=== PATIENT | female | born 1945 | race Caucasian/White ===

== ENCOUNTER → 2018-05-07 | Outpatient (CLI) | payer MEDICARE, BC ==
--- NOTE | 2018-05-07 19:20 | PE ---
EXAMINATION TYPE: PET CT fusion skull to thigh DATE OF EXAM: 05/07/2018 COMPARISON: NONE HISTORY: Solitary pulmonary nodule. TECHNIQUE: Following the intravenous administration of 12.8 mCi of F-18 FDG, whole body images are p erformed from the skull base to the midthigh. Images are reviewed on the computer in the coronal, ax ial, and sagittal planes. Reconstructed rotating images are created on independent workstation and r eviewed on the computer. A noncontrast CT is performed in conjunction with the PET scan. SCAN: Initial Scan FINDINGS: SKULL BASE AND NECK: No areas of suspicious hypermetabolic uptake are present. CHEST, MEDIASTINUM, AND HILAR REGION: There is mild to moderate underlying emphysematous change. Ther e are suspected surgical sutures or calcification in the long fissure in the upper lungs bilaterally. There are some scattered areas of linear scarring and/or atelectasis seen bilaterally involving pred ominantly mid to lower lungs. No suspicious hypermetabolic nodule or mass is identified. ABDOMEN AND PELVIS: No suspicious hypermetabolic uptake is present. OSSEOUS STRUCTURES: No suspicious hypermetabolic uptake is seen. OTHER CT: There is moderate to severe calcified plaque at bilateral carotid bulb level. Consider alcala tid ultrasound to further evaluate and characterize. 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 Small hiatal hernia is noted. Liver is diffusely low dense consistent with fatty infiltration. There is large dependent calcified 2 .3 cm gallstone in gallbladder. There are staghorn type calculi in the collecting system of both kidneys. There is asymmetric left-si ded atrophy and cortical thinning. There is partially exophytic 3.0 cm cyst laterally upper pole leve l right kidney axial image 151. There are diverticula throughout the visualized colon. There is left mid abdominal colostomy. There i s parastomal hernia containing portion of bowel loop without suspicious dilatation. Sutures at rectal stump axial image 212 are noted left pelvis. There is moderate to severe calcified plaque of the abdominal aorta extending into pelvic branch vess els. IMPRESSION: No suspicious hypermetabolic uptake is seen to suggest lung or metastatic malignancy. Com parison chest x-ray and/or CT not available at time of dictation as presumed performed outside this i nstitution.
== END | disposition home or self-care (01) ==
LOC: RADPETMAIN 12:21
PROVIDERS: ATTEND Internal Medicine Critical Care Medicine
DX: R91.1 Solitary pulmonary nodule (principal)
CPT/HCPCS: 78815; A9552